=== PATIENT | female | born 1960 | race Caucasian/White ===

== ENCOUNTER 2017-06-13 16:08 | Emergency (ER) | payer OTHER, SELFPAY ==
[2017-06-13 16:08] VITALS: BP 153/71; PULSE 80; RESP 16; TEMP 37.1; O2SAT 97; BMI 25.9
[2017-06-13] MEDS: Ondansetron 4 MG/2 ML Vial IV (17:00)
[2017-06-13] MEDS: Ceftriaxone 1 GM/50 mL Premix x1 IV (17:00)
[2017-06-13] MEDS: Ketorolac 30 MG/ML Syringe IV (17:00)
[2017-06-13 17:04] LABS: Absolute Lymphocyte Count 0.25 X10^3/ul (0.83-4.51); Basophil# 0.02 X10^3/uL; Basophil% 0.3 % (0-1); Eosinophil# 0.03 X10^3/uL; Eosinophils% 0.4 % (0-5); Hematocrit 37.7 % (37-47); Hemoglobin 12.7 g/dl (12.0-15.0); Lymphocyte # 0.25 X10^3/ul (4.0); Lymphocyte % 3.6 % (19-41); Mean Corp Hgb Conc 33.7 g/gl (32-36); Mean Corpuscular Hgb 31.4 pg (27.0-32.0); Mean Corpuscular Volume 93.3 fL (81-99); Mean Platelet Vol. 10.1 fl (6.2-12.0); Monocyte# 0.72 X10^3/uL; Monocyte% 10.3 % (0-10); Neutrophil # 5.95 X10^3/uL (2.7-7.7); Neutrophil % 85.3 % (47-70); Platelet Count 161 K/mm3 (150-450); RBC Distribution Width CV 12.1 % (11.6-14.6); RBC Distribution Width SD 41.4 fl (35.1-43.9); Red Blood Count 4.04 M/mm3 (4.2-5.4)
[2017-06-13 17:05] LABS: Differential Indicated SCAN CRITERIA MET; POSITIVE COUNT NO; POSITIVE DIFFERENTIAL YES; POSITIVE MORPHOLOGY NO
[2017-06-13 17:14] LABS: Anion Gap 7 (5-15); BUN 20 mg/dL (7-18); BUN/Creat Ratio 25.3 RATIO (10-20); Calcium,Total 8.5 mg/dL (8.5-10.1); Chloride 104 mmol/L (98-107); Creatinine, Serum 0.79 mg/dL (0.55-1.02); EST Glomerular Filtration Rate 79 mL/min (>60); Est Glom Filt Rate - Afr Amer 96 mL/min (>60); Glucose 94 mg/dL (74-106); Potassium 3.4 mmol/L (3.5-5.1); Sodium Level 139 mmol/L (136-145)
[2017-06-13 17:33] LABS: Differential Comment SCANNED
--- NOTE | 2017-06-13 18:02 | ED.DCSUM_ITS ---
- ER Visit Summary Date of Service: 06/13/17 Chief Complaint: Right flank pain and dysuria History of Present Illness: The patient is a 57 F with a 3 day history of dysuria, frequency, and urgency. She developed right flank pain as well. She was seen at urgent care where urine dip revealed 2+ leukocyte esterase and positive nitrites. Patient was sent to the ER due to concern for pyelonephritis. Patient states she does feel somewhat lightheaded when she stands up. She has not noted a fever. Physical Examination: Vital signs are unremarkable. Patient is afebrile here. Head neck examination is unremarkable. Heart is regular rate and rhythm. Lung sounds are clear. Abdomen is soft nontender. Back examination reveals tenderness in the right lateral flank region. There is no rash or ecchymosis. Test Results: CBC was normal white count but she does have a left shift noted. Chemistry studies reveal normal creatinine. Urine culture was sent. Emergency Department Course and Treatment: Based off the urine dip from urgent care patient is treated with 1 g of IV Rocephin along with Toradol and Zofran. She will be discharged with Zofran and Bactrim for 10 days to cover pyelonephritis. She was given return instructions. Treatment Plan: [] Disposition: Discharge Impression: Pyelonephritis This note was generated with [employer] dictation software. It may contain incorrect words, spelling, and punctuation that were not noted in review of the chart prior to signing ED Disposition - Plan for ED Patient: Chief Complaint: Flank Pain Referrals: Maida Lilly [Primary Care Provider] -
--- NOTE | 2017-06-13 18:04 | ED.DEP ---
ED Disposition - Plan for ED Patient: Disposition: Home or Assisted Living Chief Complaint: Flank Pain Instructions: ED Kidney Infec Female Prescriptions: Ondansetron [Zofran Odt] 4 mg PO Q8H PRN PRN #10 tablet PRN Reason: Nausea Smz/Tmp Ds [Bactrim Ds] 1 tablet PO BID #20 tablet Referrals: Maida Lilly [Primary Care Provider] - 5-7 Days
[2017-06-13 18:09] LABS: Mucous, Urine 0 SEEN /hpf (<or=2+)
[2017-06-13 18:10] LABS: Color, Urine Yellow (Yellow); Glucose, Dipstick Normal (Normal); Ketone-Dipstick 5 mg/dl (Negative); Leukocyte Esterase-Dipstick 500 /ul (Negative); Nitrite-Dipstick Negative (Negative); Occult Blood-Urine 50 /ul (Negative); Protein-Dipstick 15 mg/dl (Negative); Urine Bilirubin Dipstick Negative (Negative); Urine Clarity Sl. Cloudy (Clear); Urine Urobilinogen Normal (Normal)
[2017-06-13 18:14] VITALS: BP 137/68; PULSE 75; RESP 16; O2SAT 99
[2017-06-13 18:27] LABS: Bacteria RARE /hpf (None Seen); Red Blood Cells-Urine 0-5 SEEN /hpf (0-5); Squamous Epithelial Cells - UA 0-5 SEEN /hpf (5-10); White Blood Cells >100 SEEN /hpf (0-5)
== END 2017-06-13 18:15 | disposition home or self-care (01) ==
PROVIDERS: Emergency Provider Emergency Medicine; Family Provider Nurse Practitioner; PCP Nurse Practitioner
DX: N12 Tubulo-interstitial nephritis, not specified as acute or chronic (principal); R42 Dizziness and giddiness; Z87.442 Personal history of urinary calculi; Z87.891 Personal history of nicotine dependence; Z90.49 Acquired absence of other specified parts of digestive tract
CPT/HCPCS: 80048; 81001; 85025; 87077; 87086; 87088; 87186; 96365; 96375; 99283; J7030; J7040; A4216; J2405

== ENCOUNTER → 2021-12-08 | Outpatient (CLI) | payer BC, SELFPAY ==
--- NOTE | 2021-12-08 14:38 | BI_ITS ---
MAMMOGRAPHY - BILATERAL SCREENING 3-D TOMOSYNTHESIS REASON FOR EXAM: Female, 61 years old. SCREENING PERTINENT HISTORY: No significant family history. TECHNIQUE: 2-D mammograms and 3-D Tomosynthesis of the breast (s) were performed. CAD was performed. COMPARISON: None. FINDINGS: The breast composition is heterogeneously dense that can obscure small breast masses. Scattered benign calcifications are seen. No dense spiculated masses or suspicious microcalcifications are identified. No architectural distortion is identified. There is no skin thickening or retraction. There has been no significant change since the prior study. BI/SCRN MAMM (CAD)W/QASIM BILAT IMPRESSION: No mammographic signs of malignancy. Routine yearly mammograms recommended. ASSESSMENT CATEGORY: BIRADS Category 1: Negative. A letter regarding these results will be sent to the patient by the facility within 30 days. FOLLOW UP RECOMMENDATION: Yearly follow up mammogram recommended. (A) Approximately 10% of breast cancers are not detected by mammography. A normal mammogram should not delay biopsy of a clinically suspicious abnormality. Electronically Signed: Oumar Martin MD at 16:28 EDT ,
--- NOTE | 2021-12-08 14:58 | BD_ITS ---
STUDY: DUAL ENERGY X-RAY ABSORPTIOMETRY / DXA REASON FOR EXAM: Female, 61 years old. [id number]. Patient is postmenopausal. TECHNIQUE: Bone Mineral Density (BMD) measurements of lumbar spine and bilateral hips were obtained. COMPARISON: None. FINDINGS: Lumbar Spine (L1-L4): g/cm2 (0.927) / T-score (-0.8) / Z-score (0.7) Findings are suggestive of normal bone density with a low fracture risk. Left Femur Total: g/cm2 (0.850) / T-score (-0.8) / Z-score (0.3) Left Femoral Neck: g/cm2 (0.746) / T-score (-0.9) / Z-score (0.4) Right Femur Total: g/cm2 (0.907) / T-score (-0.3) / Z-score (0.8) Right Femoral Neck: g/cm2 (0.806) / T-score (-0.4) / Z-score (1.0) BD/Dexa Bone Density Study IMPRESSION: The patient is considered normal as outlined below according to World Rene Organization (WHO) criteria with a low fracture risk. Reference Information: The T-score is the number of standard deviations above or below the standard which is normal for young adults at their peak bone mineral density. The World Health Organization (WHO) interprets the T-scores as follows: Above -1 Normal bone density Between -1 and -2.5 Osteopenia Equal to / or below -2.5 Osteoporosis As a practical clinical guideline, osteopenia may be graded as follows: Mild -1 through -1.5 Moderate -1.6 through -2.0 Severe -2.1 through -2.4 The Z-score is the number of standard deviations above or below age-matched controls. A Z-score of less than -1.5 would be considered abnormal. References: 1. NIH Osteoporosis and Related Bone Diseases www osteo.org 2. International Society for Clinical Densitometry www iscd.org 3. National Osteoporosis Foundation www nof.org Electronically Signed: Ángel Hearn MD at 10:40 EDT ,
== END | disposition home or self-care (01) ==
LOC: OPBD 14:37
PROVIDERS: PCP Nurse Practitioner Family; Visit Provider Nurse Practitioner Family
DX: Z13.820 Encounter for screening for osteoporosis (principal); Z78.0 Asymptomatic menopausal state; Z12.31 Encounter for screening mammogram for malignant neoplasm of breast
CPT/HCPCS: 77063; 77067; 77080

== ENCOUNTER 2022-12-30 15:46 | Emergency (ER) | payer BC, SELFPAY ==
[2022-12-30 15:49] VITALS: BP 183/99; PULSE 70; RESP 18; TEMP 36.1; O2SAT 100; BMI 25.2
--- NOTE | 2022-12-30 16:00 | EX.ED.GENINJ ---
HPI <BRANDON Ingram - Last Filed: 12/30/22 20:13> History of Present Illness Chief Complaint: Laceration Narrative Narrative: Patient presenting today due to a laceration to her right fifth finger that she got earlier today when she was trying to clean the hair from her shower drain and cut her finger on the metal from the drain. She originally went to urgent care but because blood was squirting from the area, they encouraged her to come to the ED. She reports that it has been bleeding heavily since it happened despite holding pressure to the area and keeping it elevated. She denies any use of blood thinners, her tetanus is up-to-date. PFSH <BRANDON Ingram - Last Filed: 12/30/22 20:13> PFSH Home Medications ondansetron 4 mg disintegrating tablet 4 mg PO Q8H PRN PRN Nausea #10 tabs 06/13/17 [Rx Last Taken Unknown] sulfamethoxazole 800 mg-trimethoprim 160 mg tablet 1 tab PO BID ##20 06/13/17 [Rx Last Taken Unknown] Allergy/AdvReac Type Severity Reaction Status Date / Time egg Allergy nausea, Verified 12/30/22 15:49 bloating Sulfa (Sulfonamide Allergy Hives Verified 12/30/22 15:49 Antibiotics) Social History Smoking Status: Former smoker ROS <BRANDON Ingram - Last Filed: 12/30/22 20:13> ROS ED Constitutional Constitutional ED: Denies chills or fever(s) Cardiovascular Cardiovascular: Denies chest pain Respiratory/Chest Respiratory/Chest: Denies cough or dyspnea Gastrointestinal Gastrointestinal: Denies abdominal pain, nausea or vomiting Musculoskeletal Musculoskeletal: Denies arthralgias or myalgias Integumentary Reports laceration Neurologic Neurologic: Denies paresthesias EXAM <BRANDON Ingram - Last Filed: 12/30/22 20:13> Physical Exam Const Vital Signs: 12/30/22 15:49 12/30/22 18:09 Temperature 96.9 F L Temperature Source Temporal Pulse Rate 70 69 Respiratory Rate 18 15 Blood Pressure 183/99 H 150/74 H Blood Pressure Mean 127 99 Pulse Ox 100 98 Oxygen Delivery Method Room Air Positive well nourished, well developed and no apparent distress General Appearance ED: well developed HEENT Reports normocephalic and head/scalp atraumatic Mouth ED: Yes moist mucous membranes normal Eyes PERRL and EOMs intact bilaterally Neck full ROM and supple Chest Wall inspection of chest normal Resp normal respiratory effort and clear to auscultation bilaterally Cardio regular rate and regular rhythm GI soft to palpation, non-tender, non-distended and no masses Back/Spine normal ROM and normal to inspection Extremity normal to inspection and full ROM Extremity Narrative: 2 cm linear laceration to the volar aspect of the right fifth finger. Full flexion at the MCP, PIP, and DIP joints of the right hand, capillary refill is good, intact sensation, radial pulse 2+ Neuro oriented x3, CN's II-XII intact bilaterally, moves all extremities, no focal motor deficits and no sensory deficits noted Sensorium / Orientation: awake and alert Psych mental status grossly normal and thought process normal Skin no rashes or lesions noted and no wounds <Dr. Channing Gonzales MD - Last Filed: 12/30/22 17:07> Physical Exam Const Vital Signs: 12/30/22 15:49 12/30/22 18:09 Temperature 96.9 F L Temperature Source Temporal Pulse Rate 70 69 Respiratory Rate 18 15 Blood Pressure 183/99 H 150/74 H Blood Pressure Mean 127 99 Pulse Ox 100 98 Oxygen Delivery Method Room Air PROC <BRANDON Ingram - Last Filed: 12/30/22 20:13> Procedures Lacerations laceration : Length: 2 cm Depth: Sub Q Shape: Linear Laceration repair: Digital block, Irrigated, Lidocaine and Wound explored Number of Sutures/[place]: 4 Suture Information: Ethilon (5-0) [facility] <BRANDON Ingram - Last Filed: 12/30/22 20:13> [facility] Narrative Medical decision making narrative: Patient presenting today with a laceration to her right fifth finger that she got from her shower drain today. She does have pulsatile flow with a moderate amount of bleeding from the area. This was irrigated with normal saline and cleaned with chlorhexidine, digital block administered and tourniquet was placed, 4 sutures were placed. Patient tolerated procedure well. She did still have bleeding even after the sutures were placed, she was placed in a bandage with Coban with good capillary refill post bandage. She was observed for about 40 minutes and did not have any bleeding through her bandage. I instructed her to keep this bandage on for the next 24 hours, she will has been instructed to remove the bandage if it feels too tight or if she loses any sensation in her finger which I do not anticipate to happen. She has been given strict return instructions and will be discharged home in stable condition. She is to have sutures removed in 7 days. She has been educated on signs of infection to look out for and reasons to return. <Dr. Channing Gonzales MD - Last Filed: 12/30/22 17:07> [facility] Treatment and Re-Evaluation Narrative: I have personally performed a face to face assessment of the patient and have reviewed the NAZ Note. I performed a substantive portion of the visit including all aspects of the following. My montanez findings include: History: Patient presents with bleeding from her right small finger on the dominant hand. She was cleaning hair out of the drain and cut herself on the metal drain cover. She is not on any blood thinners. Exam: Patient has an approximately 2 cm laceration on the lateral and slightly volar aspect of her right small finger. Tendon function is intact. She does have a little bit of pulsatile flow from the wound. Distal color is normal. Medical Decision Making: The area was cleansed. It was anesthetized with digital block. Turnicot was placed. Sutures were placed to close the wound. When the turnicot was removed, there was some flow of blood from this. We put pressure on it it stops immediately. I think the best thing at this time is to put some pressure on it and see if we get good clot formation. It would be hard to do a suture around both ends of this likely severed vessel without doing potential neurologic injury. I also do not think cautery is appropriate in that area due to risk of injury to neurologic bundle and/or even potentially tendon sheath. Discharge Plan Triage Chief Complaint: Laceration ED Midlevel Provider: Renetta Dowd ED Provider: Channing Gonzales Dx/Rx/DC Orders Clinical Impression: Laceration of finger, right, complicated Instructions: ED Laceration: All Closures Prescriptions: No Action sulfamethoxazole-trimethoprim 1 TABLET tablet 1 tab PO BID Qty: 20 0RF ondansetron 4 MG tablet 4 mg PO Q8H PRN PRN (Reason: Nausea) Qty: 10 0RF Primary Care Provider: Claire York Referrals: Claire York, DENTAL CERAMIST-C [Primary Care Provider] - 7 Days for suture removal Activity Restrictions/Additional Instructions: Please have sutures removed in 7 days, keep bandage on your finger for 24 hours. Return for any worsening of your symptoms. Disposition Disposition: Home, Self Care Discharge Date/Time: 12/30/22 18:10
[2022-12-30 18:09] VITALS: BP 150/74; PULSE 69; RESP 15; O2SAT 98
== END 2022-12-30 18:10 | disposition home or self-care (01) ==
PROVIDERS: Emergency Provider Emergency Medicine; PCP Nurse Practitioner Family; Visit Provider Emergency Medicine
DX: S61.216A Laceration without foreign body of right little finger without damage to nail, initial encounter (principal); Z87.891 Personal history of nicotine dependence; W26.8XXA Contact with other sharp object(s), not elsewhere classified, initial encounter
CPT/HCPCS: 12001; 99282

== ENCOUNTER 2023-04-20 13:21 | Emergency (ER) | payer BC, SELFPAY ==
[2023-04-20 13:22] VITALS: BP 156/79; PULSE 76; RESP 16; TEMP 36.4; O2SAT 97; BMI 25.0
[2023-04-20 13:51] LABS: Absolute Lymphocyte Count 0.46 X10^3/uL (0.83-4.51); Absolute Neutrophil Count 11.9 X10^3/uL (2.0-7.7); Basophil# 0.04 X10^3/uL; Basophil% 0.3 % (0-1); Eosinophil# 0.05 X10^3/uL; Eosinophils% 0.4 % (0-5); Hematocrit 41.9 % (37-47); Hemoglobin 14.1 g/dL (12.0-15.0); Lymphocyte # 0.46 X10^3/ul (0.83-4.51); Lymphocyte % 3.5 % (19-41); Mean Corp Hgb Conc 33.7 g/dL (32-36); Mean Corpuscular Hgb 30.8 pg (27.0-32.0); Mean Corpuscular Volume 91.5 fL (81-99); Mean Platelet Vol. 10.4 fl (6.2-12.0); Monocyte# 0.69 X10^3/uL; Monocyte% 5.2 % (0-10); NRBC Flagged by Analyzer 0 % (0-5); Neutrophil # 11.91 X10^3/uL (2.7-7.7); Neutrophil % 90.2 % (47-70); POSITIVE DIFFERENTIAL YES; Platelet Count 249 K/mm3 (150-450); RBC Distribution Width CV 11.9 % (11.6-14.6); RBC Distribution Width SD 39.6 fl (35.1-43.9); Red Blood Count 4.58 M/mm3 (4.2-5.4); White Blood Count 13.2 K/mm3 (4.4-11.0)
[2023-04-20 13:58] LABS: Mucous, Urine 0 SEEN /hpf (<or=2+); Red Blood Cells-Urine 0 SEEN /hpf (0-5); Squamous Epithelial Cells - UA 0 SEEN /hpf (5-10)
[2023-04-20 14:02] LABS: Color, Urine Yellow (Yellow); Glucose, Dipstick Normal (Normal); Ketone-Dipstick 5 mg/dl (Negative); Leukocyte Esterase-Dipstick 25 /ul (Negative); Nitrite-Dipstick Positive (Negative); Occult Blood-Urine 25 /ul (Negative); Protein-Dipstick 30 mg/dl (Negative); Urine Bilirubin Dipstick Negative (Negative); Urine Clarity Clear (Clear); Urine Urobilinogen Normal (Normal)
--- NOTE | 2023-04-20 14:05 | CT_ITS ---
STUDY: CT ABDOMEN AND PELVIS WITH CONTRAST REASON FOR EXAM: Female, 63 years old. Lower abd pain RADIATION DOSAGE (If Supplied By Facility): CTDIvol = ( 9.97 ) mGy, DLP = ( 619.75 ) mGy TECHNIQUE: Transaxial images were obtained from the dome of the diaphragm to the symphysis pubis without oral contrast. IV 100mL Isovue-300 was administered. Sagittal and coronal images were reconstructed. Individualized dose optimization techniques were used for this CT. COMPARISON: None. FINDINGS: The visualized lung bases are unremarkable. The visualized portions of the heart are within normal limits. Normal liver. The gallbladder is not visualized and most likely is status post cholecystectomy. Normal spleen. Normal pancreas. Normal bilateral adrenal glands. Normal right kidney. 1.3 cm cyst in the medial upper pole of the left kidney. Normal visualized stomach. Normal small intestine. There is diverticulosis, with thickening of the colon wall, and pericolonic inflammation changes consistent with acute diverticulitis. The appendix is visualized and appears normal. There is scattered atherosclerotic calcification of the abdominal aorta and its major visceral branches., without a demonstrated aneurysm. Normal inferior vena cava. Normal retroperitoneum. Normal urinary bladder. Bilateral tubal ligation clips are visualized. There is a small umbilical hernia containing fat. There are mild degenerative changes of the visualized lumbar spine. CT/Abdomen/Pelvis W IV Cont ONLY IMPRESSION: Findings in keeping with noncomplicated acute sigmoid diverticulitis. Electronically Signed: Ángel Hearn MD at 14:50 EST ,
--- NOTE | 2023-04-20 14:06 | EX.ED.DYSGE1 ---
HPI History of Present Illness Chief Complaint: Abd Pain Informant: patient Onset/Context/Timing Onset: Yesterday Narrative Narrative: Patient presents secondary to lower abdominal pain and nausea. She states symptoms started last evening. When she was at work today she got much more severe sharp lower abdominal pain that caused her to become lightheaded, sweaty, and nauseated. She denies having fever. She does have history of UTIs and kidney stones but states this does not feel similar. PFSH PFS Medical History (Updated 04/20/23 @ 15:[address] Jena Alvarado MD) Kidney stones Home Medications ondansetron 4 mg disintegrating tablet 4 mg PO Q8H PRN PRN Nausea #10 tabs 06/13/17 [Rx Last Taken Unknown] sulfamethoxazole 800 mg-trimethoprim 160 mg tablet 1 tab PO BID ##20 06/13/17 [Rx Last Taken Unknown] ciprofloxacin HCl 500 mg tablet (Cipro) 500 mg PO BID #20 tabs 04/20/23 [Rx Last Taken Unknown] metronidazole 500 mg tablet 500 mg PO BID 10 days #20 tabs 04/20/23 [Rx Last Taken Unknown] Allergy/AdvReac Type Severity Reaction Status Date / Time egg Allergy nausea, Verified 04/20/23 13:22 bloating Sulfa (Sulfonamide Allergy Hives Verified 04/20/23 13:22 Antibiotics) Surgical History (Updated 04/20/23 @ 14:[address] Jena Alvarado MD) History of cholecystectomy Social History household members: spouse and significant other housing: house Smoking Status: Former smoker ROS ROS ED Constitutional Constitutional ED: Denies chills or fever(s) Eyes Eyes: Denies discharge from eye(s) ENT ENT ED: Denies discharge from eye(s), rhinorrhea or sore throat Cardiovascular Cardiovascular: Denies chest pain or palpitations Respiratory/Chest Respiratory/Chest: Denies cough or dyspnea Gastrointestinal Gastrointestinal: Reports abdominal pain and nausea; Denies diarrhea or vomiting Genitourinary Genitourinary ED: Denies dysuria or hematuria Musculoskeletal Musculoskeletal: Denies back pain or extremity pain Integumentary Denies Abrasions or rash Neurologic Neurologic: Denies headache(s) or weakness Psychiatric Psychiatric: Denies anxiety or depression Allergic/Immunologic Allergic/Immunologic ED: Denies lip swelling or urticaria EXAM Physical Exam Const Vital Signs: 04/20/23 13:22 Temperature 97.6 F L Temperature Source Temporal Pulse Rate 76 Respiratory Rate 16 Blood Pressure 156/79 H Blood Pressure Mean 104 Pulse Ox 97 Oxygen Delivery Method Room Air Positive well nourished and well developed General Appearance ED: well developed HEENT Reports moist mucous membranes Eyes EOMs intact bilaterally Chest Wall inspection of chest normal and palpation of chest normal Resp normal respiratory effort and clear to auscultation bilaterally Cardio regular rate and regular rhythm GI GI Narrative: Abdomen soft with mild tenderness of the lower abdomen. No guarding or rebound. Extremity normal to inspection Neuro oriented x3 and no sensory deficits noted Motor Exam: strength 5/5 throughout Psych mental status grossly normal Skin no rashes or lesions noted MDM MDM MDM Narrative Medical decision making narrative: IV line established. Patient given morphine and Zofran along with IV fluids. Labwork obtained to evaluate for leukocytosis, anemia, and electrolyte derangement. Urinalysis obtained to evaluate for infection/hematuria. CT abdomen pelvis with IV contrast obtained to evaluate for possible diverticulitis, ovarian cyst, kidney stone. History & Record Review Discussion w/independent historian: Patient Lab Data Attestation: I reviewed the patient's lab results. Labs: Laboratory Results - last 24 hr 04/20/23 04/20/23 13:36 13:48 WBC 13.2 H RBC 4.58 Hgb 14.1 Hct 41.9 MCV 91.5 MCH 30.8 MCHC 33.7 RDW Std Deviation 39.6 RDW Coeff of Peter 11.9 Plt Count 249 MPV 10.4 Immature Gran % (Auto) 0.400 Neut % (Auto) 90.2 H Lymph % (Auto) 3.5 L [place] % (Auto) 5.2 Eos % (Auto) 0.4 Baso % (Auto) 0.3 Absolute Neuts (auto) 11.9 H Absolute Lymphs (auto) 0.46 L Nucleated RBC % 0 Sodium 142 Potassium 3.2 L Chloride 107 Carbon Dioxide 32.0 Anion Gap 3 L BUN 22 H Creatinine 0.80 Estim Creat Clear Calc 67.31 Est GFR (MDRD) Af Amer 93 Est GFR (MDRD) Non-Af 77 BUN/Creatinine Ratio 27.4 H Glucose 102 Calcium 9.5 Total Bilirubin 2.80 H AST 15 ALT 23 Alkaline Phosphatase 85 Total Protein 8.0 Albumin 4.4 Globulin 3.6 Albumin/Globulin Ratio 1.2 Urine Color Yellow Urine Clarity Clear Urine pH 6.0 Ur Specific Recluse 1.020 Urine Protein 30 H Urine Glucose (UA) Normal Urine Ketones 5 H Urine Occult Blood 25 H Urine Nitrite Positive H Urine Bilirubin Negative Urine Urobilinogen Normal Ur Leukocyte Esterase 25 H Urine RBC 0 SEEN Urine WBC 5-10 SEEN Ur Squamous Epith Cells 0 SEEN Urine Bacteria 3+ Urine Mucus 0 SEEN Radiography Diagnostic Testing: Clinical Impression(s) from Imaging Studies Abdomen/Pelvis CT 04/20/23 14:05 IMPRESSION: Findings in keeping with noncomplicated acute sigmoid diverticulitis. Electronically Signed: Ángel Hearn MD at 14:50 EST , Treatment and Re-Evaluation :: On repeat evaluation patient resting more comfortably. CBC was a white count of 13.2 with 90% neutrophils. Hemoglobin is 14.1. Chemistry studies reveal slightly low potassium at 3.2. Renal function is unremarkable. LFTs significant only for a total bili of 2.8. Urinalysis is positive for nitrites with 5-10 white cells and 3+ bacteria. CT scan of the abdomen pelvis reveals noncomplicated acute sigmoid diverticulitis. Test results discussed with the patient. I will treat her with Cipro and Flagyl to cover both urine and bowel. Prescription sent to the pharmacy for her and return instructions given. Discharge Plan Triage Chief Complaint: Abd Pain ED Provider: Jena Alvarado Dx/Rx/DC Orders Clinical Impression: UTI (urinary tract infection), Diverticulitis Instructions: ED Diverticulitis, ED Cystitis Female Adult Prescriptions: New ciprofloxacin HCl [Cipro] 500 mg tablet 500 mg PO BID Qty: 20 0RF metronidazole 500 mg tablet 500 mg PO BID 10 Days Qty: 20 0RF No Action sulfamethoxazole-trimethoprim 1 TABLET tablet 1 tab PO BID Qty: 20 0RF ondansetron 4 MG tablet 4 mg PO Q8H PRN PRN (Reason: Nausea) Qty: 10 0RF Primary Care Provider: Claire York Referrals: Claire York NP-C [Primary Care Provider] - 1-2 Weeks
[2023-04-20] MEDS: Ondansetron 4 MG/2 ML Vial IV (14:11)
[2023-04-20] MEDS: Morphine 4 MG/ML Syringe IV (14:11)
[2023-04-20 14:13] LABS: Bacteria 3+ /hpf (None Seen); White Blood Cells 5-10 SEEN /hpf (0-5)
[2023-04-20 14:14] LABS: ALB/GLOB Ratio 1.2 RATIO (0.9-2.4); AST(SGOT) 15 U/L (15-37); Alanine Aminotransfer ALT/SGPT 23 U/L (13-56); Albumin, Serum 4.4 g/dL (3.2-5.0); Alkaline Phosphatase 85 U/L (45-117); Anion Gap 3 (5-15); BUN 22 mg/dL (7-18); BUN/Creat Ratio 27.4 RATIO (10-20); Calcium,Total 9.5 mg/dL (8.5-10.1); Chloride 107 mmol/L (98-107); EST Glomerular Filtration Rate 77 mL/min (>60); Est Glom Filt Rate - Afr Amer 93 mL/min (>60); Estimated Creatinine Clearance 67.31 ml/min; Globulin 3.6 g/dL (2.2-4.2); Glucose 102 mg/dL (74-106); Potassium 3.2 mmol/L (3.5-5.1); Sodium Level 142 mmol/L (136-145)
[2023-04-20] MEDS: 0.9% Normal Saline (1000mL) 1,000 ML 150 ML IV (14:15)
[2023-04-20] MEDS: Ciprofloxacin 500 MG Tablet PO (15:21)
[2023-04-20] MEDS: metroNIDAZOLE 500 MG Tablet PO (15:21)
[2023-04-20 15:25] VITALS: PULSE 74; RESP 12; O2SAT 98
--- OUTSIDE RECORDS SUMMARY | 2023-04-20 17:20 | XMS RPT_ITS | CCD ---
Author Name Unknown Address [address] [place] [address] Organization [facility] Care Team Providers Care Manufacturing Design Engineer Name Role Phone Maida Loo Unavailable Eri Singer Unavailable Unavailable Unavailable Unavailable Maida Loo CNP Primary Care Provider Claire York CNP Unavailable Claire York CNP Unavailable [phone] Penelope Camacho Unavailable Jena Kraus Unavailable Eri Singer LPN Unavailable Unavailable Maida Loo Unavailable Unavailable Unavailable Maida Loo CNP Primary Care Provider MAIDA LOO Primary Care Unavailable Allergies Allergy Classification Reported Allergen(s) Allergy Type Date of Onset Reaction(s) Facility (3 sources) Sulfonamides (Antibiotic); Translations: [SULFA (SULFONAMIDE ANTIBIOTICS)] Drug Allergy 10-01-2019 [facility] Medications Current Medications Medication Drug Class(es) Dates Sig (Normalized) Sig (Original) nitrofurantoin, macrocrystals 25 mg / nitrofurantoin, monohydrate 75 mg oral capsule (1 source) Nitrofuran Antibacterial Start: 10-10-2021 End: 10-15-2021 take 1 capsule by mouth twice daily nitrofurantoin monohydrate and macrocrystal (MACROBID) 100 mg capsule Take 1 capsule by mouth twice daily for 5 days. 10 capsule 0 10/10/2021 10/15/2021 Active Completed/Discontinued Medications Medication Drug Class(es) Dates Sig (Normalized) Sig (Original) hydroCHLOROthiazide 12.5 mg oral tablet (4 sources) Thiazide Diuretic Start: 2 take 1 tablet by mouth once daily hydroCHLOROthiazide 12.5 mg oral tablet 1 (one) Tablet one tab by mouth once daily for 30 days Quantity: 30 {Tablet} Refills: 2 Ordered: 28-Feb-2022 Jaylen FERClaire Start : 28-Feb-2022 Active Comments: HTN Problems Active Problems Problem Classification Problem Date Documented Da te Episodic/Chronic Essential hypertension (12 sources) Hypertensive disorder; Translations: [Hypertension] 11-23-2021 Chronic Past or Other Problems Problem Classification Problem Date Documented Da te Episodic/Chronic Hepatitis (3 sources) Hepatitis Other connective tissue disease (1 source) Swelling of right lower limb; Translations: [Right leg swelling] 10-23-2016 Results Test Name Value Interpretation Reference Range Facil ity Vital Signs Date Time Vital Sign Value Performing Clinician Facility 12-30-2022 15:16-0400 Body temperature 96.49 [degF] Johan Steward MD Work Phone: [facility] 12-30-2022 15:16-0400 Body weight 66.22 kg Johan Steward MD Work Phone: [facility] 12-30-2022 15:16-0400 Diastolic blood pressure 100 mm[Hg] Johan Steward MD Work Phone: [facility] 12-30-2022 15:16-0400 Heart rate 71 /min Johan Steward MD Work Phone: [facility] 12-30-2022 15:16-0400 Respiratory rate 18 /min Joahn Steward MD Work Phone: [facility] 12-30-2022 15:16-0400 SaO2% (BldA) [Mass fraction] 100 % Johan Steward MD Work Phone: [facility] 12-30-2022 15:16-0400 Systolic blood pressure 201 mm[Hg] Johan Steward MD Work Phone: [facility] 11-23-2021 15:29-0400 Body height 161.93 cm Eri Singer LPN [facility] Work Phone: 11-23-2021 15:290400 Body mass index (BMI) [Ratio] 25 kg/m2 Eri Singer MAIL CARRIER AND CLERK [facility] Work Phone: 11-23-2021 15:040 Body surface area Derived from formula 1.7 m2 Eri Singer MAIL CARRIER AND CLERK [facility] Work Phone: 11-23-2021 15:040 Body temperature 97.8 [degF] Eri Scottierb MAIL CARRIER AND CLERK [facility] Work Phone: 11-23-2021 15:040 Body weight 65.55 kg Eri Singer LPN [facility] Work Phone: 11-23-2021 15:29040 Diastolic blood pressure 84 mm[Hg] Eri Singer LPN [facility] Work Phone: Encounters Encounter Date Encounter Type Care Provider Facility Start: 12-30-2022 End: 12-30-2022 ambulatory [facility] Facility:[facility] Start: 12-30-2022 End: 12-30-2022 Patient encounter procedure Johan Steward MD Work Phone: [facility] Procedures Date Procedure Procedure Detail Performing Clinician Start: 12-30-2022 End: 12-30-2022 Emergency Department Summary Procedure Note: See Note; NOTES: [facility] Medical Records Department [address] [place] [address] Emergency Department Summary 12/30/22 MR#: [id number] Acct: [id number] Name: ZAIRA NGUYEN Rep #: [id number] : 1960 62 From: Channing Gonzales MD PCP: ANGY Stewart Status:DEP ER Location: ED HPI <BRANDON Ingram - Last Filed: 12/30/22 20:13> History of Present Illness Chief Complaint: Laceration Narrative Narrative: Patient presenting today due to a laceration to her right fifth finger that she got earlier today when she was trying to clean the hair from her shower drain and cut her finger on the metal from the drain. She originally went to urgent care but because blood was squirting from the area, they encouraged her to come to the ED. She reports that it has been bleeding heavily since it happened despite holding pressure to the area and keeping it elevated. She denies any use of blood thinners, her tetanus is up-to-date. PFSH <BRANDON Ingram - Last Filed: 12/30/22 20:13> PFSH Home Medications ondansetron 4 mg disintegrating tablet 4 mg PO Q8H PRN PRN Nausea #10 tabs 06/13/17 [Rx Last Taken Unknown] sulfamethoxazole 800 mg-trimethoprim 160 mg tablet 1 tab PO BID ##20 06/13/17 [Rx Last Taken Unknown] Allergy/AdvReac Type Severity Reaction Status Date / Time egg Allergy nausea, Verified 12/30/22 15:49 bloating Sulfa (Sulfonamide Allergy Hives Verified 12/30/22 15:49 Antibiotics) Social History Smoking Status: Former smoker ROS <BRANDON Ingram - Last Filed: 12/30/22 20:13> ROS ED Constitutional Constitutional ED: Denies chills or fever(s) Cardiovascular Cardiovascular: Denies chest pain Respiratory/Chest Respiratory/Chest: Denies cough or dyspnea Gastrointestinal Gastrointestinal: Denies abdominal pain, nausea or vomiting Musculoskeletal Musculoskeletal: Denies arthralgias or myalgias Integumentary Reports laceration Neurologic Neurologic: Denies paresthesias EXAM <BRANDON Ingram - Last Filed: 12/30/22 20:13> Physical Exam Const Vital Signs: 12/30/22 15:49 12/30/22 18:09 Temperature 96.9 F L Temperature Source Temporal Pulse Rate 70 69 Respiratory Rate 18 15 Blood Pressure 183/99 H 150/74 H Blood Pressure Mean 127 99 Pulse Ox 100 98 Oxygen Delivery Method Room Air Positive well nourished, well developed and no apparent distress General Appearance ED: well developed HEENT Reports normocephalic and head/scalp atraumatic Mouth ED: Yes moist mucous membranes normal Eyes PERRL and EOMs intact bilaterally Neck full ROM and supple Chest Wall inspection of chest normal Resp normal respiratory effort and clear to auscultation bilaterally Cardio regular rate and regular rhythm GI soft to palpation, non-tender, non-distended and no masses Back/Spine normal ROM and normal to inspection Extremity normal to inspection and full ROM Extremity Narrative: 2 cm linear laceration to the volar aspect of the right fifth finger. Full flexion at the MCP, PIP, and DIP joints of the right hand, capillary refill is good, intact sensation, radial pulse 2+ Neuro oriented x3, CN's II-XII intact bilaterally, moves all extremities, no focal motor deficits and no sensory deficits noted Sensorium / Orientation: awake and alert Psych mental status grossly normal and thought process normal Skin no rashes or lesions noted and no wounds <Dr. Channing Gonzales MD - Last Filed: 12/30/22 17:07> Physical Exam Const Vital Signs: 12/30/22 15:49 12/30/22 18:09 Temperature 96.9 F L Temperature Source Temporal Pulse Rate 70 69 Respiratory Rate 18 15 Blood Pressure 183/99 H 150/74 H Blood Pressure Mean 127 99 Pulse Ox 100 98 Oxygen Delivery Method Room Air PROC <BRANDON Ingram - Last Filed: 12/30/22 20:13> Procedures Lacerations laceration : Length: 2 cm Depth: Sub Q Shape: Linear Laceration repair: Digital block, Irrigated, Lidocaine and Wound explored Number of Sutures/[place]: 4 Suture Information: Ethilon (5-0) [facility] <BRANDON Ingram - Last Filed: 12/30/22 20:13> [facility] Narrative Medical decision making narrative: Patient presenting today with a laceration to her right fifth finger that she got from her shower drain today. She does have pulsatile flow with a moderate amount of bleeding from the area. This was irrigated with normal saline and cleaned with chlorhexidine, digital block administered and tourniquet was placed, 4 sutures were placed. Patient tolerated procedure well. She did still have bleeding even after the sutures were placed, she was placed in a bandage with Coban with good capillary refill post bandage. She was observed for about 40 minutes and did not have any bleeding through her bandage. I instructed her to keep this bandage on for the next 24 hours, she will has been instructed to remove the bandage if it feels too tight or if she loses any sensation in her finger which I do not anticipate to happen. She has been given strict return instructions and will be discharged home in stable condition. She is to have sutures removed in 7 days. She has been educated on signs of infection to look out for and reasons to return. <Dr. Channing Gonzales MD - Last Filed: 12/30/22 17:07> [facility] Treatment and Re-Evaluation Narrative: I have personally performed a face to face assessment of the patient and have reviewed the NAZ Note. I performed a substantive portion of the visit including all aspects of the following. My montanez findings include: History: Patient presents with bleeding from her right small finger on the dominant hand. She was cleaning hair out of the drain and cut herself on the metal drain cover. She is not on any blood thinners. Exam: Patient has an approximately 2 cm laceration on the lateral and slightly volar aspect of her right small finger. Tendon function is intact. She does have a little bit of pulsatile flow from the wound. Distal color is normal. Medical Decision Making: The area was cleansed. It was anesthetized with digital block. Turnicot was placed. Sutures were placed to close the wound. When the turnicot was removed, there was some flow of blood from this. We put pressure on it it stops immediately. I think the best thing at this time is to put some pressure on it and see if we get good clot formation. It would be hard to do a suture around both ends of this likely severed vessel without doing potential neurologic injury. I also do not think cautery is appropriate in that area due to risk of injury to neurologic bundle and/or even potentially tendon sheath. Discharge Plan Triage Chief Complaint: Laceration ED Midlevel Provider: Renetta Dowd ED Provider: Channing Gonzales Dx/Rx/DC Orders Clinical Impression: Laceration of finger, right, complicated Instructions: ED Laceration: All Closures Prescriptions: No Action sulfamethoxazole-trimethoprim 1 TABLET tablet 1 tab PO BID Qty: 20 0RF ondansetron 4 MG tablet 4 mg PO Q8H PRN PRN (Reason: Nausea) Qty: 10 0RF Primary Care Provider: Claire York Referrals: Claire York, CLINICAL ABSTRACTOR-C [Primary Care Provider] - 7 Days for suture removal Activity Restrictions/Additional Instructions: Please have sutures removed in 7 days, keep bandage on your finger for 24 hours. Return for any worsening of your symptoms. Disposition Disposition: Home, Self Care Discharge Date/Time: 12/30/22 18:10 What to do if you have Problems For any increased pain, shortness of breath, bleeding, nausea or vomiting, chest pain, or any unexpected problems, contact your Primary Care Provider. Call [facility] ([phone]) or report to the closest Emergency Room. Call 911 if necessary. 12/30/222199 <Electronically signed by Channing Gonzales MD> Cosigner Signature (if applicable): 12/30/222012 <Electronically signed by Renetta TAYLOR> CC: CLINICAL ABSTRACTOR-C Claire York Signed Claire York [facility] Work Phone: Start: 12-08-2021 End: 12-14-2021 Dexa Bone Density Study Procedure Note: See Note; NOTES: [facility] Imaging Services [address] [place] [address] Dexa Bone Density Study MR#: [id number] Acct: [id number] Name: ZAIRA NGUYEN Rep #: [id number] : 1960 F 61 From: Ángel lawrence MD PCP: ANGY Stewart Status: [facility] Study: Dexa Bone Density Study Date of Exam: 12/08/21 Exam# [id number] Ordering Dr: Claire York STUDY: DUAL ENERGY X-RAY ABSORPTIOMETRY / DXA REASON FOR EXAM: Female, 61 years old. [id number]. Patient is postmenopausal. TECHNIQUE: Bone Mineral Density (BMD) measurements of lumbar spine and bilateral hips were obtained. COMPARISON: None. FINDINGS: Lumbar Spine (L1-L4): g/cm2 (0.927) / T-score (-0.8) / Z-score (0.7) Findings are suggestive of normal bone density with a low fracture risk. Left Femur Total: g/cm2 (0.850) / T-score (-0.8) / Z-score (0.3) Left Femoral Neck: g/cm2 (0.746) / T-score (-0.9) / Z-score (0.4) Right Femur Total: g/cm2 (0.907) / T-score (-0.3) / Z-score (0.8) Right Femoral Neck: g/cm2 (0.806) / T-score (-0.4) / Z-score (1.0) BD/Dexa Bone Density Study IMPRESSION: The patient is considered normal as outlined below according to World Rene Organization (WHO) criteria with a low fracture risk. Reference Information: The T-score is the number of standard deviations above or below the standard which is normal for young adults at their peak bone mineral density. The World Health Organization (WHO) interprets the T-scores as follows: Above -1 Normal bone density Between -1 and -2.5 Osteopenia Equal to / or below -2.5 Osteoporosis As a practical clinical guideline, osteopenia may be graded as follows: Mild -1 through -1.5 Moderate -1.6 through -2.0 Severe -2.1 through -2.4 The Z-score is the number of standard deviations above or below age-matched controls. A Z-score of less than -1.5 would be considered abnormal. References: 1. NIH Osteoporosis and Related Bone Diseases www osteo.org 2. International Society for Clinical Densitometry www iscd.org 3. National Osteoporosis Foundation www nof.org Electronically Signed: Ángel Hearn MD at 10:40 EDT , CC: CLINICAL ABSTRACTORRaC Claire York Digital Experience Manager: Signed Claire York [facility] Work Phone: Start: 12-08-2021 End: 12-08-2021 SCRN MAMM (CAD)W/QASIM BILAT Procedure Note: See Note; NOTES: [facility] Imaging Services [address] [place] [address] SCRN MAMM (CAD)W/QASIM BILAT MR#: [id number] Acct: [id number] Name: ZAIRA NGUYEN Rep #: [id number] : 1960 F 61 From: Oumar Martin MD PCP: ANGY Stewart Status: REG CLI Study: SCRN MAMM (CAD)W/QASIM BILAT Date of Exam: 11/18 05/10 Exam# [id number] Ordering Dr: Claire York MAMMOGRAPHY - BILATERAL SCREENING 3-D TOMOSYNTHESIS REASON FOR EXAM: Female, 61 years old. SCREENING PERTINENT HISTORY: No significant family history. TECHNIQUE: 2-D mammograms and 3-D Tomosynthesis of the breast (s) were performed. CAD was performed. COMPARISON: None. FINDINGS: The breast composition is heterogeneously dense that can obscure small breast masses. Scattered benign calcifications are seen. No dense spiculated masses or suspicious microcalcifications are identified. No architectural distortion is identified. There is no skin thickening or retraction. There has been no significant change since the prior study. BI/SCRN MAMM (CAD)W/QASIM BILAT IMPRESSION: No mammographic signs of malignancy. Routine yearly mammograms recommended. ASSESSMENT CATEGORY: BIRADS Category 1: Negative. A letter regarding these results will be sent to the patient by the facility within 30 days. FOLLOW UP RECOMMENDATION: Yearly follow up mammogram recommended. (A) Approximately 10% of breast cancers are not detected by mammography. A normal mammogram should not delay biopsy of a clinically suspicious abnormality. Electronically Signed: Oumar Martin MD at 16:28 EDT , CC: ANGY York Digital Experience Manager: Signed Claire York [facility] Work Phone: Start: 10-10-2021 Urnls dip stick/tablet rgnt auto w/o microscopy Annie Remy APRNJosé MiguelORE [employer] Work Phone: Start: 06-14-2017 End: 06-14-2017 Emergency Department Summary Comments: See Note; NOTES: [facility] Medical Records Department [address] [place] [address] Emergency Department Summary 06/13/17 1802 MR#: [id number] Acct: [id number] Name: ZAIRA NGUYEN Rep #: [id number] : 1960 57 From: Jena Alvarado MD PCP: Maida Loo NP Status: DEP ER - ER Visit Summary Date of Service: 06/13/17 Chief Complaint: Right flank pain and dysuria History of Present Illness: The patient is a 57 F with a 3 day history of dysuria, frequency, and urgency. She developed right flank pain as well. She was seen at urgent care where urine dip revealed 2+ leukocyte esterase and positive nitrites. Patient was sent to the ER due to concern for pyelonephritis. Patient states she does feel somewhat lightheaded when she stands up. She has not noted a fever. Physical Examination: Vital signs are unremarkable. Patient is afebrile here. Head neck examination is unremarkable. Heart is regular rate and rhythm. Lung sounds are clear. Abdomen is soft nontender. Back examination reveals tenderness in the right lateral flank region. There is no rash or ecchymosis. Test Results: CBC was normal white count but she does have a left shift noted. Chemistry studies reveal normal creatinine. Urine culture was sent. Emergency Department Course and Treatment: Based off the urine dip from urgent care patient is treated with 1 g of IV Rocephin along with Toradol and Zofran. She will be discharged with Zofran and Bactrim for 10 days to cover pyelonephritis. She was given return instructions. Treatment Plan: [] Disposition: Discharge Impression: Pyelonephritis This note was generated with [employer] dictation software. It may contain incorrect words, spelling, and punctuation that were not noted in review of the chart prior to signing ED Disposition - Plan for ED Patient: Chief Complaint: Flank Pain Referrals: Maida Loo [Primary Care Provider] - What to do if you have Problems For any increased pain, shortness of breath, bleeding, nausea or vomiting, chest pain, or any unexpected problems, contact your Primary Care Provider. Call [facility] ([phone]) or report to the closest Emergency Room. Call 911 if necessary. 06/14/17 0040 <Electronically signed by Jena Alvarado MD> Date Jena Alvarado MD Cosigner Signature (If Indicated): Date CC: Maida Loo Start: 06-13-2017 End: 06-13-2017 Discharge Instruction Comments: See Note; NOTES: [facility] Medical Records Department [address] [place] [address] Discharge Instruction 06/13/171803 MR#: [id number] Acct: [id number] Name: ZAIRA NGUYEN Rep #: [id number] : 1960 57 From: Jena Alvarado MD PCP: Maida Loo NP Status: REG ER ED Disposition - Plan for ED Patient: Disposition: Home or Assisted Living Chief Complaint: Flank Pain Instructions: ED Kidney Infec Female Prescriptions: Ondansetron [Zofran Odt] 4 mg PO Q8H PRN PRN #10 tablet PRN Reason: Nausea Smz/Tmp Ds [Bactrim Ds] 1 tablet PO BID #20 tablet Referrals: Maida Loo [Primary Care Provider] - 5-7 Days What to do if you have Problems For any increased pain, shortness of breath, bleeding, nausea or vomiting, chest pain, or any unexpected problems, contact your Primary Care Provider. Call [facility] ([phone]) or report to the closest Emergency Room. Call 911 if necessary. 06/13/17 180 <Electronically signed by Jena Alvarado MD> Date Jena Vargas Signature (If Indicated): Date CC: Maida Loo Start: 03-07-2017 End: 03-07-2017 OT D/C of Non Returning Pt Comments: See Note; NOTES: Occupational Therapy [facility] [address] [place], [place] [address] Fax REHABILITATION SERVICES DISCHARGE SUMMARY MR#: [id number] Acct: [id number] Name: ZAIRA NGUYEN Rep #: [id number] : 1960 57 From: Ana Maria WEBSTER/Milka, RANJITT Referring Dr.: Maida Loo NP Status: REG RCR Eval Date: Discharge Date: HP - Discharge Summary - Patient Information ZAIRA NGUYEN was seen in my office for initial evaluation on 09/26/16. The following Plan of Care was established for this patient: Initial Frequency: 1x/Week Initial Duration: 2 Weeks Plan: pt to bring wraps next session - Anticipated Interventions Anticipated Interventions: Manual Lymph Drainage, Education re Life-long lymphedema Management, Education re Self-Bandaging Techniques, Education re Skin Care and Precautions, Education re Correct Donning Tech,Care AND Wearing Sched Comp Garments This patient was last seen in our office 11/03/16. Pertinent comments regarding their Occupational therapy will appear below: pt was seen for 2 visits and cancelled her last apt. pt has not scheduled any further apts and is D/C at this time. At this point I will be discontinuing this patient from occupational therapy. I would be happy to see this patient again in the future if found appropriate by the physician. Thank you! DARIN Perez/Milka, CHT <Electronically signed by Ana Maria WEBSTER/Milka, CHT> 03/07/17 1458 CC: Maida Loo NP MK Signed Maida Loo Start: 09-27-2016 End: 09-27-2016 OT General Evaluation Comments: See Note; NOTES: Occupational Therapy [facility] [address] [facility] [place], [place] [address] Fax REHABILITATION SERVICES INITIAL EVALUATION MR#: [id number] Acct: [id number] Name: ZAIRA NGUYEN Rep #: [id number] : 1960 56 From: Ana Maria WEBSTER/Milka, CHT Referring Dr.: Maida Loo Status: REG RCR Insurance: [employer] [facility] Date: Patient's Visit Information ZAIRA NGUYEN is a 56 year old F, referred to Occupational Therapy by Maida Loo,, with a diagnosis of right LE lymphedema. Date of Evaluation: 09/26/16 Occupational Therapist: Ana Maria Bustillos, DARIN/Milka, CHT - Subjective Subjective: This 56 year old female was seen for inital OT eval September 26, 2016. 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 Pt works at [employer] for 23 years. Pt state she is on her feet most of the day- Pt states in remote past she broke her right ankle when she was 9 and then 3 years ago she did have right LE cellulitis this resolved. - Pain right foot 2 - Lymphedema (Circumferential Measure) Mid-foot: Right 23cm Left 22.5cm Ankle: Right 30cm left 27cm Lower calf: Right 29cm left 24cm Largest calf: right 37.5 cm left 36cm Below knee: right 35cm left 33.3cm - Goals Demonstrate a 20% reduction in edema by d/c: Yes Demonstrate adequate knowledge of self-bangaging by 1st week: Yes Demonstrate adequate knowledge of self-massage by 2nd week: Yes Demonstrate adequate knowledge skin care/prec by 2nd week: Yes Demonstrate adequate knowledge therapeutic exercises by d/c: Yes Select approp compression garment w/donning/care/wear by d/c: Yes Voice need to replace compression garment every 4-6mo by dc: Yes - Rehabilitation General Assessment: pt demon with stage II lymphedema Rehabilitation Potential: Good - Anticipated Interventions Anticipated Interventions: Manual Lymph Drainage, Education re Life-long lymphedema Management, Education re Self-Bandaging Techniques, Education re Skin Care and Precautions, Education re Correct Donning Tech,Care AND Wearing Sched Comp Garments - Visit Plan Frequency: 1x/Week Duration: 2 Weeks General Plan: see pt 3-4 visits to ensure pt demonstrates understanding of compression hose use and care. TEXT: Thank you for the opportunity to evaluate your patient. For Medicare and Medicare HMO plans, please review the plan of care and approve it. It will need to be FAXED BACK to us at [phone] for Medicare purposes. Please let me know if there are questions or concerns regarding this plan of care. Physician Signature: _Date: <Electronically signed by Ana Maria VIDALES CHT> 09/27/16 1200 CC: Maida Loo MK Signed For Medicare only, by signing this I certify the plan of care. Physicians Signature Date Maida Loo Start: 08-22-2016 End: 08-22-2016 Venous Duplex Lower Extremity Comments: See Note; NOTES: [facility] Cardiovascular Services [address] [place] [address] Venous Duplex US, Unilateral 08/22/16 0916 MR#: [id number] Acct: [id number] Name: ZAIRA NGUYEN Rep #: [id number] : [id number] 56 From: Jossue Washburn MD Attending : Maida Loo Status: REG CLI Ordering Dr: Maida Loo Date: 08/22/16 Location: [facility] Sex: F C Admitted: Reason For Study: swelling RIGHT LEFT GSV is normal. CFV is compressible, spontaneous, phasic , CFV is compressible, spontaneous, phasic, competent, and demonstrates normal competent and demonstrates normal augmentation. augmentation. FV is compressible, spontaneous, phasic, competent and demonstrates normal augmentation. POP V is compressible, spontaneous, phasic, competent and demonstrates normal augmentation. T/P Trunk is compressible. PTV is compressible. RT PerV is compressible. Procedure Exam performed in department. The exam was diagnostic. A preliminary report was called and/or faxed to Maida Loo. Interpretation Summary Deep veins of the right lower extremity are patent and compressible segmentally. There is no evidence of right lower extremity deep vein thrombosis. Valvular competence appears intact within the proximal deep venous system on the right . The right greater saphenous vein appears patent and compressible segmentally. Ordering Physician: Maida Loo Performed By: Yannick Hernandez, RVT 08/22/162032 Date Jossue Washburn MD CC: Maida Loo Date Dictated: 08/22/16915 Date Transcribed: 08/22/162032 Digital Experience Manager: Signed Maida Loo Work Phone: Plan of Treatment Date Care Activity Detail Author Start: 11-17-2022 Covid-19 Vaccine () Covid-19 Vaccine () [facility] Start: 11-17-2022 Influenza vaccination Influenza Vaccine (#1) [facility] Start: 03-19-2022 Depression Assessment Depression Assessment [facility] Start: 11-23-2021 Iadna hepatitis b virus amplified probe tq Hepatitis B, DNA Probe, Amplified (82041) [facility] Work Phone: Payers Date Payer Category Payer Unknown 2021 Unknown [employer] PPO OOS [id number] 2021-Present [phone] [address] [place] [address] PPO [id number] 2021 Unknown [id number] Social History Date Type Detail Facility Alcohol Use: Alcohol Use: [facility] Work Phone: Start: 02-24-2020 End: 12-30-2022 Caffeine Use Caffeine Use [facility] Work Phone: Progress note 12-30-2022 Note Date & Type Note Facility 12-30-2022 Note HNO ID: [id number] Author: Johan Steward MD Service: ? Author Type: Physician Type: Progress Notes Filed: 12/30/2022 3:50 PM Note Text: Patient presents with: Laceration: R hand fifth finger x1.5 hours HPI: Cut her right hand 5th finger cleaning out her shower drain this afternoon. She has wrapped the wound with a cloth and electrical tape. Uncertain of her last tetanus booster. MEDICATIONS: hydroCHLOROthiazide 12.5 mg tablet Take by mouth. ALLERGIES: ALLERGIES Allergen Reactions Sulfa (Sulfonamide * Hives VITALS: BP (!) 201/100 Pulse 71 Temp (!) 35.8 ?C (96.5 ?F) Resp 18 Wt 66.2 kg (146 lb) SpO2 100% PE: Pleasant, in no acute distress. Accompanied by her . Finger: right 5th, dripping blood from dressing. Lateral mid finger laceration has pulsatile stream when undressed. Pressure dressing with non-adherent pad and COBAN applied. ASSESSMENT/PLAN: 1. Laceration of right little finger without foreign body without damage to nail, initial encounter - ICD9: 883.0, ICD10: S61.216A Patient referred to the ER for arterial laceration of the finger. Report called to [facility]. Johan Steward MD [facility] History of Present illness Narrative 12-30-2022 Johan Steward MD - 12/30/2022 3:25 PM EDT Note Date & Type Note Facility 12-30-2022 History of Presen t illness Narrative Patient presents with: Laceration: R hand fifth finger x1.5 hours HPI: Cut her right hand 5th finger cleaning out her shower drain this afternoon. She has wrapped the wound with a cloth and electrical tape. Uncertain of her last tetanus booster. MEDICATIONS: hydroCHLOROthiazide 12.5 mg tablet Take by mouth. ALLERGIES: ALLERGIES Allergen Reactions Sulfa (Sulfonamide * Hives VITALS: BP (!) 201/100 Pulse 71 Temp (!) 35.8 C (96.5 F) Resp 18 Wt 66.2 kg (146 lb) SpO2 100% PE: Pleasant, in no acute distress. Accompanied by her . Finger: right 5th, dripping blood from dressing. Lateral mid finger laceration has pulsatile stream when undressed. Pressure dressing with non-adherent pad and COBAN applied. ASSESSMENT/PLAN: 1. Laceration of right little finger without foreign body without damage to nail, initial encounter - ICD9: 883.0, ICD10: S61.216A Patient referred to the ER for arterial laceration of the finger. Report called to [facility]. Johan Steward MD documented in this encounter [facility] Instructions 10-10-2021 Patient Instructions Note Date & Type Note Facility 10-10-2021 Instructions Annie Remy APRN.CNP - 10/10/2021 3:48 PM EDT macrobid for 5 days Tylenol/ibuprofen as needed for discomfort AZO otc Increase hydration -Follow up with PCP or return to clinic if symptoms not improving in 3 days or if you develop any new (or worsening) symptoms such as fever, chills or back pain go to ER. Advise to get in kerline for BP recheck, monitor at home and take readings with you to the office. documented in this encounter [facility] History of Present illness Narrative 10-10-2021 Annie Remy APRN.[employer] - 10/10/2021 3:35 PM EDT Note Date & Type Note Facility 10-10-2021 History of Presen t illness Narrative Subjective The history is provided by the patient. No farm machinery mechanic was used. HPI Zaira Nguyen is a 61 year old female who presents today for CC of burning with urination and frequency and urgency over the past week and not going away Positive for Dysuria, Increase in frequency of urination and Urgency, Negative for Sense of incomplete void, Fevers, Vomiting, Diarrhea, Abdominal pain , Back/Flank pain, Blood in urine and Vaginal itch or discharge Chance of : No Last intercourse: still sexually active Any self-treatment attempted: No Number of previous UTI's in last 6 months:1 Number of previous UTI's in last 12 months: 1 Aggravating Factors: voiding Alleviating Factors include Increasing fluids with minimal relief in symptoms. BP (!) 218/102 Pulse 68 Temp 36.5 C (97.7 F) Resp 20 Wt 66.5 kg (146 lb 9.6 oz) SpO2 96% BP recheck 185/110 Patient's BP was elevated like this in May, she was advised to follow up with PCP - she attempted and could not get a hold of the office. She denies any symptoms, no headache, blurred vision, epigastric pain, lightneadedness Social History Tobacco Use Smoking status: Current Every Day Smoker Smokeless tobacco: Never Used Substance Use Topics Alcohol use: Not on file Drug use: Not on file PAST MEDICAL HISTORY Diagnosis Date NEGATIVE MEDICAL HISTORY I have confirmed and edited as necessary, the [facility] Review of Systems Constitutional: Negative for chills and fever. Gastrointestinal: Negative for abdominal pain, diarrhea, nausea and vomiting. Genitourinary: Positive for dysuria, frequency and urgency. Negative for flank pain and hematuria. Musculoskeletal: Negative for back pain. Objective Physical Exam Vitals and nursing note reviewed. Constitutional: Appearance: Normal appearance. Abdominal: General: Bowel sounds are normal. There is no abdominal bruit. Palpations: Abdomen is not rigid. There is no mass or pulsatile mass. Tenderness: There is no abdominal tenderness. There is no guarding or rebound. Negative signs include Orosco's sign and McBurney's sign. Neurological: Mental Status: She is alert and oriented to person, place, and time. Psychiatric: Mood and Affect: Affect normal. ASSESSMENT/PLAN: 1. Urinary frequency - ICD9: 788.41, ICD10: R35.0 (primary diagnosis) acute - UA positive for bee esterase, hematuria and proteinuria - Send urine for culture - Begin treatment with Macrobid 100 mg BID for 5 days - Patient education for prevention given - UA DIP, URINE (POC) - URINE CULTURE 2. Elevated blood pressure reading without diagnosis of hypertension - ICD9: 796.2, ICD10: R03.0 Advised to call office for appointment. - Goal of BP <130/80 Diagnosis and treatment plan were discussed and questions were answered to the patient's satisfaction. Pt acknowledged understanding of concepts and follow up plan. Specific signs and symptoms that would indicate the need for higher level of care were discussed in detail warranting prompt ER evaluation. Annie Remy APRN.FER documented in this encounter [facility] Evaluation note Note Date & Type Note Facility documented in this encounter [facility] Evaluation note Note Date & Type Note Facility documented in this encounter [facility] Instructions Note Date & Type Note Facility [facility]; [facility] Work Phone: Instructions Note Date & Type Note Facility [facility] Work Phone: Instructions Note Date & Type Note Facility [facility] Work Phone: Instructions Name Dates Details How to access health informa tion online Indication:Right leg swelling Start:23-Oct-2016 Instruction Type:Patient Education How to access health informa tion online - Detail Indication:Right leg swelling Start:23-Oct-2016 Instruction Type:Patient Education Patient Instructions Indication:Right leg swelling Start:23-Oct-2016 Instruction Type:Provider Instructions for Treatment How to access health informa tion online Indication:Right leg swelling Start:11-Sep-2016 Instruction Type:Patient Education How to access health informa tion online - Detail Indication:Right leg swelling Start:11-Sep-2016 Instruction Type:Patient Education Patient Instructions Indication:Right leg swelling Start:11-Sep-2016 Instruction Type:Provider Instructions for Treatment How to access health informa tion online Indication:Right leg swelling Start:21-Aug-2016 Instruction Type:Patient Education How to access health informa tion online - Detail Indication:Right leg swelling Start:21-Aug-2016 Instruction Type:Patient Education Patient Instructions Indication:Right leg swelling Start:21-Aug-2016 Instruction Type:Provider Instructions for Treatment Summary Purpose Family History No Family History Records Found Advance Directives No Advanced Directives Records Found Additional Source Comments Source Comments (unrecognize d section and content) In the event this informatio n is protected by the Federal Confidentiality of Alcohol and Drug Abuse Patient Records regulations: The Federal rules restrict any use of the information to criminally investigate or prosecute any alcohol or drug abuse patient.[facility] event this information is protected by the Federal Confidentiality of Alcohol and Drug Abuse Patient Records regulations: The Federal rules restrict any use of the information to criminally investigate or prosecute any alcohol or drug abuse patient.[facility] Reason for Visit (unrecogniz ed section and content) Reason Comments Laceration R hand fifth finger x1.5 hours Care Teams (unrecognized sec tion and content) Manufacturing Design Engineer Relationship Specialty Start Date End Date Maida Loo CNP [address] [address] PCP - General Internal Medicine 06/13/17 INFORMATION SOURCE (unrecogn ized section and content) FOR RECORDS PERTAINING TO PATIENTS WHO ARE OR HAVE BEEN ENROLLED IN A CHEMICAL DEPENDENCY/SUBSTANCEABUSE PROGRAM, SOME INFORMATION MAY BE OMITTED. This clinical summary was aggregated from multiple sources. Caution should be exercised in using it in the provision of clinical care. This summary normalizes information from multiple sources, and as a consequence, information in this document may materially change the coding, format and clinical context of patient data. In addition, data may be omitted in some cases. CLINICAL DECISIONS SHOULD BE BASED ON THE PRIMARY CLINICAL RECORDS. [facility], [facility]. provides no warranty or guarantee of the accuracy or completeness of information in this document.
== END 2023-04-20 15:27 | disposition home or self-care (01) ==
PROVIDERS: Emergency Provider Emergency Medicine; PCP Nurse Practitioner Family; Visit Provider Emergency Medicine
DX: N39.0 Urinary tract infection, site not specified (principal); K57.32 Diverticulitis of large intestine without perforation or abscess without bleeding; Z90.49 Acquired absence of other specified parts of digestive tract; Z87.891 Personal history of nicotine dependence
CPT/HCPCS: 74177; 80053; 81001; 85025; 96361; 96374; 96375; 99284; Q9967; J2405

== ENCOUNTER → 2023-06-22 | Outpatient (CLI) | payer BC, SELFPAY ==
--- NOTE | 2023-06-22 16:44 | CT_ITS ---
INDICATION: Left lower quadrant pain, history of diverticulitis EXAMINATION: CT ABDOMEN AND PELVIS WITH CONTRAST - CT Abdomen And Pelvis W/ Contrast Injection TECHNIQUE: Helically acquired images were obtained of the abdomen and pelvis following IV contrast. A radiation dose optimization technique was used for this scan. IV Contrast dosage and agent: 100 cc Isovue-300 Oral contrast: Yes. COMPARISON: 04/20/2023 FINDINGS: LOWER CHEST: Lung bases are clear. No cardiomegaly or pericardial effusion. LIVER: Homogeneous. No focal mass. GALLBLADDER AND BILIARY TREE: Gallbladder not seen. No intra- or extrahepatic biliary ductal dilation. PANCREAS: Unremarkable. SPLEEN: Normal size without focal cystic or solid mass. ADRENAL GLANDS: No nodules. KIDNEYS AND URETERS: Stable small cortical cyst left kidney. No hydronephrosis. PERITONEUM: No ascites or free air. BOWEL: Normal appendix. No stomach or bowel distension. Persistent colonic diverticulosis with interval resolution of colonic wall thickening and pericolonic stranding. LYMPH NODES: No enlarged mesenteric or retroperitoneal lymph nodes. VESSELS: Aorta is non-dilated. URINARY BLADDER: Nondistended. REPRODUCTIVE ORGANS: No pelvic masses. BONES: No acute or aggressive abnormality. CT/Abdomen/Pelvis WITH Contrast IMPRESSION: No acute findings in the abdomen or pelvis. Colonic diverticulosis without CT changes of acute diverticulitis. Electronically Signed: Singh Banda MD at 20:07 EDT ,
[2023-06-22 19:23] LABS: CREATININE FINGERSTICK < 1.0 mg/dL (0.55-1.02); EGFR FINGERSTICK > 60.0000 mL/min (>60)
== END | disposition home or self-care (01) ==
PROVIDERS: PCP Nurse Practitioner Family
DX: R10.32 Left lower quadrant pain (principal)
CPT/HCPCS: 74177; Q9967; A4216

== ENCOUNTER → 2023-08-21 | Outpatient (CLI) | payer BC, SELFPAY ==
[2023-08-27 17:07] LABS: HPV APTIMA, High Risk Negative (Negative)
== END | disposition home or self-care (01) ==
LOC: LABSPEC 14:13
PROVIDERS: PCP Nurse Practitioner Family; Referring Provider Nurse Practitioner Women's Health; Visit Provider Nurse Practitioner Women's Health
DX: Z12.4 Encounter for screening for malignant neoplasm of cervix (principal)
CPT/HCPCS: 87624; 88175; G0145